=== PATIENT | male | born 1985 ===

== ENCOUNTER → 2020-04-11 10:00 | Outpatient (CLI) | payer OTHER ==
[~2020-04-11 10:00] MED LIST: CLARITIN10 MG; CLARITIN10 MG PO; FLEXERIL 10 MG PO; FLONASE16 GM NS; GILTUSS TR TAB1 EACH PO; MULTIVITAMINS1 EAC9
== END | disposition home or self-care (01) ==
LOC: PPH VACUNA 10:00
DX: Z23 Encounter for immunization (principal)

== ENCOUNTER 2020-07-29 07:54 | Outpatient (CLI) | payer OTHER | END 2020-07-29 07:56 | disposition home or self-care (01) | LOC: LAB 07:54 | PROVIDERS: ATTEND Anesthesiology | DX: Z01.812 Encounter for preprocedural laboratory examination (principal) ==

== ENCOUNTER → 2020-08-26 14:22 | Outpatient (CLI) | payer OTHER | END | disposition home or self-care (01) | LOC: LAB 14:22 | PROVIDERS: ATTEND Anesthesiology Pain Medicine | DX: Z02.79 Encounter for issue of other medical certificate (principal) ==

== ENCOUNTER → 2021-02-13 | Outpatient (CLI) | payer OTHER | END | disposition home or self-care (01) | LOC: LAB 09:49 | PROVIDERS: ATTEND Emergency Medicine Pediatric Emergency Medicine | DX: Z03.818 Encounter for observation for suspected exposure to other biological agents ruled out (principal) ==

== ENCOUNTER 2021-04-22 08:00 | Outpatient (CLI) | payer OTHER | END 2021-04-22 08:30 | disposition home or self-care (01) | LOC: PPH VACUNA 08:00 | PROVIDERS: ATTEND Emergency Medicine Pediatric Emergency Medicine | DX: Z23 Encounter for immunization (principal) ==

== ENCOUNTER 2021-04-22 08:00 | Outpatient (CLI) | payer OTHER | END 2021-04-22 08:30 | disposition home or self-care (01) | LOC: PPH VACUNA 08:00 | PROVIDERS: ATTEND Emergency Medicine Pediatric Emergency Medicine | DX: Z23 Encounter for immunization (principal) ==

== ENCOUNTER → 2021-12-30 08:19 | Outpatient (CLI) | payer OTHER | END | disposition home or self-care (01) | LOC: LAB 08:19 | PROVIDERS: ATTEND Internal Medicine Cardiovascular Disease | DX: E03.9 Hypothyroidism, unspecified (principal); I10 Essential (primary) hypertension; E11.9 Type 2 diabetes mellitus without complications; E78.2 Mixed hyperlipidemia; N40.0 Benign prostatic hyperplasia without lower urinary tract symptoms; N39.0 Urinary tract infection, site not specified; E55.9 Vitamin D deficiency, unspecified ==

== ENCOUNTER 2022-01-28 06:57 | Outpatient (CLI) | payer OTHER | END 2022-01-28 07:02 | disposition home or self-care (01) | LOC: RAD 06:57 | PROVIDERS: ATTEND Internal Medicine Cardiovascular Disease | DX: M46.48 Discitis, unspecified, sacral and sacrococcygeal region (principal); R10.9 Unspecified abdominal pain; N63.11 Unspecified lump in the right breast, upper outer quadrant ==

== ENCOUNTER 2022-03-23 18:12 | Emergency (ER) | payer OTHER ==
[~2022-03-23] VITALS: Ht 188 cm; Wt 125.6 kg
[2022-03-23] MEDS ORDERED: CARDIZEM120 MG PO (18:20)
== END 2022-03-23 19:35 | disposition home or self-care (01) ==
LOC: ER 18:12
DX: J32.9 Chronic sinusitis, unspecified (principal); I10 Essential (primary) hypertension

== ENCOUNTER 2022-03-26 08:00 | Outpatient (CLI) | payer OTHER ==
[~2022-03-26 08:00] MED LIST changes: +CARDIZEM120 MG PO
== END 2022-03-26 08:05 | disposition home or self-care (01) ==
LOC: PPH VACUNA 08:00
PROVIDERS: ATTEND Emergency Medicine Pediatric Emergency Medicine
DX: Z23 Encounter for immunization (principal)

== ENCOUNTER 2022-07-28 07:49 | Outpatient (CLI) | payer OTHER | END 2022-07-28 07:51 | disposition home or self-care (01) | LOC: LAB 07:49 | PROVIDERS: ATTEND Internal Medicine Cardiovascular Disease | DX: D64.9 Anemia, unspecified (principal); R10.9 Unspecified abdominal pain; E03.9 Hypothyroidism, unspecified; E78.5 Hyperlipidemia, unspecified; E11.9 Type 2 diabetes mellitus without complications ==

== ENCOUNTER 2022-08-10 08:47 | Outpatient (CLI) | payer OTHER | END 2022-08-10 08:48 | disposition home or self-care (01) | LOC: NUCLEAR 08:47 | PROVIDERS: ATTEND Internal Medicine Cardiovascular Disease | DX: I10 Essential (primary) hypertension (principal) ==

== ENCOUNTER → 2022-08-10 10:39 | Outpatient (CLI) | payer OTHER | END | disposition home or self-care (01) | LOC: LAB 10:39 | PROVIDERS: ATTEND Surgery | DX: Z03.818 Encounter for observation for suspected exposure to other biological agents ruled out (principal); Z20.822 Contact with and (suspected) exposure to COVID-19; R19.5 Other fecal abnormalities; R19.4 Change in bowel habit ==